=== PATIENT | female | born 1995 | race Caucasian/White ===

== ENCOUNTER 2021-09-11 02:48 | Outpatient (CLI) | payer OTHER ==
[2021-09-11] MEDS ORDERED: PHENERGAN 12.12.5 M1 PO (11:20)
== END 2021-09-11 03:46 | disposition home or self-care (01) ==
LOC: GENOP 02:48
DX: O99.891 Other specified diseases and conditions complicating pregnancy (principal); R10.9 Unspecified abdominal pain; Z3A.33 33 weeks gestation of pregnancy
CPT/HCPCS: G0463